=== PATIENT | female | born 1955 | race Caucasian/White ===

== ENCOUNTER → 2016-12-16 | Day surgery (SDC) | payer OTHER ==
[2016-12-14 11:15] LABS: HCT 39.2 % (37.0-47.0); HGB 12.9 g/dl (12.5-16.0); MCH 29.5 pg (25.0-31.0); MCHC 32.9 g/dL (32.0-36.0); MCV 89.7 fL (78.0-100.0); MPV 9.5 fL (6.0-9.5); RBC 4.37 M/uL (4.20-5.40); RDW 14.7 % (11.5-14.0); WBC 4.8 K/uL (4.0-10.5)
[2016-12-14 11:33] LABS: ALBUMIN 4.5 g/dL (3.5-5.0); BILIRUBIN - TOTAL 0.2 mg/dL (0.1-1.0); CREATININE 0.8 mg/dL (0.5-1.0); GLOBULIN (CALCULATION) 2.6 g/dL (2.2-4.2); POTASSIUM 4.2 mmol/L (3.5-5.1); TOTAL PROTEIN 7.1 g/dL (6.4-8.3)
== END | disposition home or self-care (01) ==
LOC: FAS 06:41
PROVIDERS: Orthopaedic Surgery
DX: M75.121 Complete rotator cuff tear or rupture of right shoulder, not specified as traumatic (principal); M75.41 Impingement syndrome of right shoulder; S43.431A Superior glenoid labrum lesion of right shoulder, initial encounter; M19.011 Primary osteoarthritis, right shoulder; M75.21 Bicipital tendinitis, right shoulder; M75.81 Other shoulder lesions, right shoulder; Z88.8 Allergy status to other drugs, medicaments and biological substances; Z79.899 Other long term (current) drug therapy; Z98.890 Other specified postprocedural states
CPT/HCPCS: 36415; 71020; 80053; C1713; J1100; J1170; J1885; J2405; J2704; J2710; J2795; J3010